=== PATIENT | male | born 1960 | race Caucasian/White ===

== ENCOUNTER 2016-08-30 20:56 | Emergency (ER) | payer BC ==
[~2016-08-30] VITALS: Ht 182.9 cm; Wt 104.3 kg
[~2016-08-30 20:56] MED LIST: CETI10TA25 PO; IBUP200C42 PO
--- OUTSIDE RECORDS SUMMARY | 2016-08-30 21:00 | XMS REPORT | Continuity of Care Document ---
Author Author [facility] Organization [facility] Address Unknown Phone Unavailable Allergies Medications Problems Procedures Results Encounters ACCT No. Visit Date/Time Discharge Status Pt. Type Provider Facility Loc./Unit Complaint [id number] 06/28/2013 08:38:00 06/28/2013 23 :59:59 CLS Outpatient
--- OUTSIDE RECORDS SUMMARY | 2016-08-30 21:00 | XMS REPORT | Continuity of Care Document ---
Author Author Sepideh SANFORD, Saul CHANCE Organization Ambulatory Address [address] [place] [address] Phone Care Team Providers Care Pottery Striper Name Role Phone Saul Bunn PP Unavailable Payers Payer name Insurance type Covered democrat ID Authorization(s) Unknown Problems Condition Effective Dates (start - stop) Clinical Status Hypercholesterolemia - *Chronic GERD - *Chronic VARICELLA UNCOMPLICATED - CHRONIC SINUSITIS NOS - ALLERGIC RHINITIS NOS - 490 - BRONCHITIS NOS - BPH NOS W/O UR OBS/LUTS - Leg pain - *Acute Hypercholesterolemia - *Chronic GERD (gastroesophageal reflux disease) - *Chronic History of DVT of lower extremity - *Resolved Allergic rhinitis, cause unspecified - *Acute Calf pain - *Acute Bronchitis, Acute - *Acute Family History Family Member Diagnosis Age At Onset Status uncle (Unknown) Cancer - prostate Yes Son (Unknown) Alive and well (Unknown) Brother (Unknown) Alive and well (Unknown) Sister (Alive) Hypertension Yes Father (Unknown) Hypertension Yes Mother (Unknown) Dementia Yes Son (Unknown) Alive and well (Unknown) Father (Unknown) CAD Yes uncle (Unknown) Cancer - colon Yes Paternal grandfather (Unknown) Heart disease Yes Sister (Unknown) Parkinson's disease Yes Sister (Unknown) Alive and well (Unknown) Mother (Unknown) COPD Yes Father () CVA (Stroke) Yes Mother () Cancer - breast Yes Social History Social History Element Description Quantity alcohol Allergies, Adverse Reactions, Alerts Substance Reaction Severity Status AMOXICILLIN rash Unknown Medications Medication Instructions Dosage Effective Dates (start - stop) Status Vitamin C 500 mg tablet take 1 by Oral route every day 0 - Active L-Lysine 500 mg tablet 1 TAB DAILY - Active glucosamine-chondroitin 1,500 mg -1,200 mg/30 mL oral liquid take 1 TABLET by Oral route every day 0 - Active VITAMIN E (unknown strength) take 1 Tablet by Oral route every day - Active Vitamin B Complex capsule take one tablet daily as directed - Active Fish Oil (unknown strength) take 1 Tablet by Oral route every day - Active multivitamin capsule take by oral route daily as directed - Active Protonix 40 mg tablet,delayed release Take 1 tablet by mouth every day. - Active Immunizations Vaccine Date Status Comments Unknown Results Test Name Date and Time Measure Units Reference Range Abnormal Flag Comments Panel Description: Chemistry Profile Glucose 09:17:00 82 mg/dL 70-99 BUN 09:17:00 15 mg/dL 8-26 Creatinine 09:17:00 0.98 mg/dL 0.72-1.25 Calcium 09:17:00 9.4 mg/dL 8.9-10.5 Sodium 09:17:00 140 mEq/L 135-144 Potassium 09:17:00 4.9 mEq/L 3.5-5.2 Chloride 09:17:00 104 mEq/L 99-111 CO2 09:17:00 28 mEq/L 23-31 Albumin 09:17:00 4.4 g/dL 3.5-5.0 Bilirubin Total 09:17:00 1.2 mg/dL 0.2-1.2 Alkaline Phosphatase 09:17:00 87 U/L 40-150 Protein 09:17:00 7.6 g/dL 6.4-8.3 ALT (SGPT) 09:17:00 61 U/L 0-55 H AST (SGOT) 09:17:00 27 U/L 5-34 Anion Gap 09:17:00 8 3-20 Globulin 09:17:00 3.2 g/dL 1.8-4.0 Testing performed at [facility] Reference [facility] [address] [place] [address] [employer] Harvinder Hernandes MD Panel Description: Lipid Profile-[facility] Cholesterol 09:17:00 207 mg/dL 0-199 H Triglycerides 09:17:00 138 mg/dL 0-149 HDL Cholesterol 09:17:00 35 mg/dL 40-84 L LDL Cholesterol 09:17:00 144 mg/dL 0-130 H VLDL Cholesterol 09:17:00 28 mg/dL 0-28 Cardiac Risk 09:17:00 5.9 0.0-5.7 H Testing performed at [facility] Reference [facility] [address] [place] [address] [employer] Harvinder Hernandes MD Panel Description: Non-HDL Cholesterol-[facility] Non-HDL Cholesterol 09:17:00 172 mg/dL 0-159 H Testing performed at [facility] Reference [facility] [address] [place] [address] [employer] Harvinder Hernandes MD Panel Description: EGFR-[facility] eGFR 09:17:00 >60 mL/min >60 Multiply eGFR results by 1.21 for race.Testing performed at [facility] Reference [facility] [address] [place] [address] [employer] Harvinder Hernandes MD Panel Description: Magnesium Magnesium 09:17:00 2.2 mg/dL 1.6-2.6 Testing performed at [facility] Reference [facility] [address] [place] [address] [employer] Harvindre Hernandes MD Vital Signs Date / Time: Height Weight Pulse Rate Blood Pressure Temperature /08:44:00 72.00 in 241.00 lbs 80 /min 114/78 mm[Hg] 98.2 F Procedures Procedure Date Unknown Encounters Encounter Location Date Patient Visit [facility] Patient Visit [facility] [place] Patient Visit [facility] Patient Visit Conversion Patient Visit [facility] New Patient Visit [facility] Patient Visit [facility] Patient Visit [facility] Patient Visit [facility] Advance Directives Directive Effective Date Unknown
[2016-08-30 21:02] VITALS: Ht 182.9 cm; Wt 104.3 kg
--- OUTSIDE RECORDS SUMMARY | 2016-08-30 21:10 | XMS REPORT | Continuity of Care Document ---
Author Author [facility] Organization [facility] Address Unknown Phone Unavailable Allergies Medications Problems Procedures Results Encounters ACCT No. Visit Date/Time Discharge Status Pt. Type Provider Facility Loc./Unit Complaint [id number] 06/28/2013 08:38:00 06/28/2013 23 :59:59 CLS Outpatient
[2016-08-30] MEDS ORDERED: RIVA20TA PO (21:18)
[2016-08-30] MEDS ORDERED: PANT20TA PO (21:18)
--- NOTE | 2016-08-30 21:20 | ERPDOC ---
Departure Disposition Decision Date: August 30, 2016 Disposition Decision Time: 21:22 Disposition: 01 DISCHARGED HOME, SELF-CARE Impression Impression Impression: Primary Impression: Insect bite Encounter type: initial encounter Qualified Codes: W57.XXXA - Bitten or stung by nonvenomous insect and other nonvenomous arthropods, initial encounter Severity: Moderate Condition: Stable Seen By: Mid-level only Patient Instructions: Insect Bite or Sting (ED) Problems/Meds/Labs Reviewed?: Yes Medications reviewed and manag: Yes Additional Instructions: You may use Benadryl cream or Cortisone cream for swelling and itching. Start the Bactrim tomorrow if there is increased pain, tenderness, or swelling. Return to ER over the weekend if any other issues/concerns or ulceration of the lesion. Otherwise follow up with your primary care provider next week. Follow up care ordered?: Yes Mental Status: Alert, Oriented Scripts Sulfamethoxazole/Trimethoprim (Bactrim Ds Tablet) 1 Each Tablet 1 TAB PO BID, #20 TAB 0 Refills Take 1 tablet, by mouth, 2 times a day. Prov: LINDSAYCANDYMARIA GUADALUPE Fall APRN 08/30/16 HPI - Skin General General Chief Complaint: Skin Rash/Abscess Stated Complaint: POSS SPIDER BITE Time Seen by Provider: 21:05 Source: patient Exam Limitations: no limitations HPI - Skin General Initial Comments Tonight he was putting on a jacket and felt a sharp sting on his left forearm. Noted that there was some increased redness and swelling at the site with a small purple middle. He does take Xarelto daily. He is concerned that it may be a spider bite as his brother had a brown recluse bite that caused a lot of trouble. Wanted to get it evaluated. Occurred At: home Onset: Rapid Duration: 1-3 hrs Severity: moderate Location: extremities (Left forearm) Possible Cause: insect bite Associated Symptoms: DENIES: blisters, change in skin texture, edema, fever, flushing, headache, hives, jaundice, malaise, nasal congestion, numbness, pallor , paresthesia, petechiae, rash, sore throat, swelling/mass/lumps, tingling Hx of Similar Symptoms: No Allergies: Coded Allergies: amoxicillin (Verified Allergy, Unknown, 08/30/16) Past History Past Medical History GI: GERD Hematologic: DVT Surgical History Denies Surgeries Family History Family History: Negative Vaccines Hx Influenza Vaccination: No Hx Pneumococcal Vaccination: No Social History Smoking Status: Never smoker Substance Use Type: does not use Alcohol Intake: none Review of Systems Constitutional Constitutional: DENIES: chills, dizziness, fatigue, fever, weakness Cardiovascular Cardiac: DENIES: chest pain, orthopnea Rhythm/Rate: DENIES: irregular beat, palpitations Vascular: DENIES: pedal edema, unilateral swelling Pulmonary Respiratory: DENIES: cough, dyspnea, sputum, tachypnea GI Upper Abdomen: DENIES: nausea, pain, vomiting Lower Abdomen: DENIES: constipation, diarrhea, pain Integumentary Skin: DENIES: rash Neurological General: DENIES: headache, numbness, tingling, weakness Physical Exam General General Nourishment: well nourished, well developed, appears stated age, no acute distress, adult General Body Habitus: well groomed Vitals and Pain Weight: Kilograms: 104.300 Height (feet): 6 Height (inches): 0 Triage Pain Scale: RN VS reviewed by Provider: Yes Normal Exams: Lymphatic: No lymphadenopathy, or lymphedema noted Musculoskeletal: No tenderness, or deformity noted, good range of motion, all extremities Neurologic: Patient is alert, and oriented Psychiatric: Patient exhibits, appropriate attention, emotion and affect Integumentary (brief) Integumentary Brief: FOUND: other (On the left forearm there is an area that has some increased erythema and swelling, no induration noted. It is slightly larger than a half dollar. The middle is purple but without ulceration.) Differential Diagnoses Considering: Abscess, Bite, Carbuncle, Cellulitis, Contact Dermatitis, Insect Sting Progress Progress Progress I do think that the purple part may be due to some bruising. At this point it does appear more like a histamine reaction but will give him a Rx for Bactrim to fill and start tomorrow if this is more painful, swollen, or tender. Will have him return to ER for reevaluation if any concerns over the weekend. MARIA GUADALUPE CHEEMA APRN August 30, 2016 21:20
[2016-08-30] MEDS ORDERED: SULF1TAB42 PO (21:23)
[2016-08-30 21:39] VITALS: BP 138/91; PULSE 87; RESP 18; TEMP 98.1; O2SAT 94
== END 2016-08-30 21:39 | disposition home or self-care (01) ==
LOC: ED 20:56
DX: S50.862A Insect bite (nonvenomous) of left forearm, initial encounter (principal); W57.XXXA Bitten or stung by nonvenomous insect and other nonvenomous arthropods, initial encounter; Y93.89 Activity, other specified; Y92.009 Unspecified place in unspecified non-institutional (private) residence as the place of occurrence of the external cause; Y99.8 Other external cause status